=== PATIENT | male | born 1960 | race Caucasian/White ===

== ENCOUNTER 2021-12-13 00:06 | Emergency (ER) | payer OTHER ==
[~2021-12-13] VITALS: Ht 180.3 cm; Wt 99.5 kg
[2021-12-13 00:11] VITALS: BP 122/61
[2021-12-13] MEDS ORDERED: dexamethasone sod phosphate 10mg/ml inj PO STA (00:11)
[2021-12-13] MEDS ORDERED: LORazepam 1 MG tablet PO ONE (00:15)
[2021-12-13] MEDS ORDERED: LORA-269 PO (01:26)
== END 2021-12-13 03:11 | disposition home or self-care (01) ==
LOC: ER 00:09
DX: R06.1 Stridor (principal)
CPT/HCPCS: 99283; J1100